=== PATIENT | male | born 1955 | race Caucasian/White ===

== ENCOUNTER 2023-07-08 09:03 | Emergency (ER) | payer OTHER, SELFPAY ==
--- NOTE | ~2023-07-08 | XR_ITS ---
EXAMINATION: XR knee RT 3V DATE: 07/08/2023 09:32 INDICATION: Right knee pain TECHNIQUE: Three views of the right knee were obtained. COMPARISON: None. FINDINGS: Alignment is normal. No fracture or osteochondral lesion. There is mild tricompartmental os teoarthritis characterized by tiny marginal osteophytes. There is a moderate size knee joint effusion . Soft tissues are unremarkable. IMPRESSION: 1. Moderate size joint effusion without acute osseous abnormality. Reviewed, dictated and finalized at location [facility]
[2023-07-08 09:15] VITALS: BP 144/79; PULSE 90; RESP 16; TEMP 36.3; O2SAT 100
--- NOTE | 2023-07-08 09:15 | ED.EXTPRO ---
HPI - Extremity Problem General Chief complaint: Extremity Problem,Nontraumatic Stated complaint: Right Knee Pain Source: patient Mode of arrival: ambulatory Limitations: no limitations History of Present Illness HPI Narrative: 68-year-old male presented for complaint of right knee pain and swelling over the past weeks. Pain is worse with bending or walking, no pain at rest. He denies known injury. States yesterday after sitting, the knee was stiff and hard to straighten. States he has some days with the knee hurts worse than others. Denies redness or warmth to the site. Denies numbness, tingling, weakness. Took Aleve for pain. Does not have PCP. Related Data Home Medications Medication Instructions Recorded Confirmed No Home Medications 07/08/23 07/08/23 Allergies Allergy/AdvReac Type Severity Reaction Status Date / Time No Known Allergies Allergy Verified 07/08/23 09:17 Review of Systems Review of Systems: CONSTITUTIONAL: Denies body aches, fever, chills EYES: Denies visual changes ENT: Denies rhinorrhea, congestion CARDIOVASCULAR: Denies chest pain, palpitations, or edema. RESPIRATORY: Denies cough or dyspnea. GASTROINTESTINAL: Denies abdominal pain, nausea, vomiting, or diarrhea. SKIN: Denies rash, itching, or wounds. MUSCULOSKELETAL: Reports right knee denies back pain, or myalgia. NEUROLOGIC: Denies headache, numbness, tingling, or weakness. All systems reviewed & are unremarkable except as noted in HPI and below PMFSH Past Medical History Medical History (Updated 07/08/23 @ 10:01 by Katlyn Benito APRN) No pertinent past medical history Comments At time of signature, I have reviewed and agree with nursing past medical, surgical, social and family history unless otherwise noted. Please see nursing chart for further information. There is no relevant family history pertinent to the presenting complaint Exam Narrative: GENERAL: Well-appearing, well-nourished, and in no acute distress. CHEST: Speaks in full sentences. No respiratory distress. HEART: Regular rate and rhythm. Normal and equal peripheral pulses. EXTREMITIES: Right knee normal range of motion, Moderate swelling. No ecchymosis warmth or erythema, No point tenderness. RLE has normal strength and sensation, No open wounds, alignment normal, pulse palpable and equal bilaterally, skin warm, dry, pink. Capillary refill less than 3 seconds. Steady gait. SKIN: Warm, dry, no rash. NEURO: Alert and oriented x3. PSYCH: Normal mood and affect Course Course Emergency Course: Patient is aware of diagnosis, understands and agrees to treatment plan. Anticipatory guidance given. Patient agrees to follow-up as directed and is aware of reasons to seek care at the emergency department. Portions of this record may have been created with voice recognition software Level of Care: Express Care Visit Vital Signs Vital signs: Vital Signs Temperature 97.3 F L 07/08/23 09:15 Pulse Rate 90 07/08/23 09:15 Respiratory Rate 16 07/08/23 09:15 Blood Pressure 144/79 H 07/08/23 09:15 Pulse Oximetry 100 07/08/23 09:15 Temperature 97.3 F L 07/08/23 09:15 Pulse Rate 90 07/08/23 09:15 Respiratory Rate 16 07/08/23 09:15 Blood Pressure 144/79 H 07/08/23 09:15 Pulse Oximetry 100 07/08/23 09:15 Reviewed MDM - Extremity (Nontraumatic) MDM Narrative Medical decision making narrative: Results of x-ray reviewed with patient. Discussed physical exam findings. Declined Danish wrap, states he has Danish wrap and a knee sleeve at home. Advised supportive measures and signs/symptoms to go to the ER. Pt is appropriate for outpt treatment and f/u. Differential Diagnosis Differential diagnosis: Likely other (osteoarthritis, patella dislocation, patellar tendonitis, tendon rupture, gout, bakers cyst, septic bursitis, dvt) Imaging Data Radiologist's impression: Patient: Jasson Thakur : 1955 MR#: [id number] Age: 68 A
== END 2023-07-08 10:02 | disposition home or self-care (01) ==
PROVIDERS: Emergency Provider Nurse Practitioner Family
DX: M25.561 Pain in right knee (principal)
CPT/HCPCS: 73562; 99213; G0463

== ENCOUNTER → 2023-08-02 07:37 | Outpatient (CLI) | payer OTHER, SELFPAY ==
--- NOTE | ~2023-08-02 | MR_ITS ---
MRI of the right knee Clinical history: Injury Technique: Coronal proton density and proton density-weighted images, sagittal proton-density and T2 fat-sat images, and axial proton-density fat-saturated images were acquired. Findings: Exam degraded by motion artifact. Anterior and posterior cruciate ligaments appear intact. Medial collateral ligament and the lateral collateral ligament complex appear intact. Popliteus tendo n is intact. There is complex, predominantly horizontal tear involving the posterior horn and body of the medial m eniscus. There is horizontal tear involving the body segment of the lateral meniscus, possibly extend ing to the posterior horn. There is a large subchondral geode of the posterior tibial spine at the PCL insertion region. There i s probable high-grade chondromalacia of the medial tibial plateau with subchondral cystic change at t he medial joint line at the medial tibial plateau. There is mild to moderate chondromalacia of the la teral compartment. There is patchy moderate to high-grade chondromalacia extensively involving the pa tellofemoral compartment. Extensor mechanism is intact. Moderate joint effusion present. There is small Aquino's cyst. There is extensive subcutaneous soft tissue edema. Impression: Complex, predominantly horizontal tear involving the posterior horn and body of the medial meniscus. Horizontal tear body segment of the lateral meniscus, possibly extending to the posterior horn. Tricompartmental degenerative change, as detailed above. There is a large subchondral geode at the po sterior tibial spine at the PCL insertion region. Moderate joint effusion with small Aquino's cyst. Extensive subcutaneous soft tissue edema, nonspecific. Reviewed, dictated and finalized at [facility]. DYER Impression: Complex, predominantly horizontal tear involving the posterior horn and body of the medial meniscus. Horizontal tear body segment of the lateral meniscus, possibly extending to the posterior horn. Tricompartmental degenerative change, as detailed above. There is a large subch ondral geode at the posterior tibial spine at the PCL insertion region. Moderate joint effusion with small Aquino's cyst. Extensive subcutaneous soft tissue edema, nonspecific.
== END ==
PROVIDERS: PCP Orthopaedic Surgery; Visit Provider Orthopaedic Surgery
DX: S83.231A Complex tear of medial meniscus, current injury, right knee, initial encounter (principal); M17.11 Unilateral primary osteoarthritis, right knee; M25.461 Effusion, right knee; M71.21 Synovial cyst of popliteal space [Baker], right knee
CPT/HCPCS: 73721

== ENCOUNTER 2023-09-14 11:33 | Outpatient (CLI) | payer OTHER, SELFPAY ==
--- NOTE | 2023-09-14 12:04 | ECG_ITS ---
Measurements Intervals [place] Rate: 86 P: 238 OK: 104 QRS: -3 QRSD: 82 T: 58 QT: 368 QTc: 442 Interpretive Statements SINUS RHYTHM RHYTHM BASELINE ARTIFACT LIMITS INTERPRETATION NO PREVIOUS ECG AVAILABLE FOR COMPARISON Electronically Signed On 09-14-2023 16:43:22 [employer]AST[employer] MANAGEMENT SPECIALIST by Omar Harmon M.D.
== END 2023-09-14 11:34 | disposition home or self-care (01) ==
PROVIDERS: Visit Provider Orthopaedic Surgery
DX: Z01.818 Encounter for other preprocedural examination (principal); R93.1 Abnormal findings on diagnostic imaging of heart and coronary circulation; F17.200 Nicotine dependence, unspecified, uncomplicated
CPT/HCPCS: 93005

== ENCOUNTER 2023-09-16 01:17 | Day surgery (SDC) | payer OTHER, SELFPAY ==
[2023-09-06 08:05] VITALS: BMI 26.2
--- NOTE | 2023-09-06 08:18 | PC.NURSE ---
Report to the Outpatient Waiting Room, entrance under the green pavilion located off [facility], at time __7:00AM on date __09/16/23 . Planned Procedure Time: ___9:00AM . Time changes happen often and if your time is changed the preop area will call you the afternoon before. - You and your visitor will be asked to self-screen and do not enter if you have any COVID symptoms. - A mask is optional within the hospital at this time. Patients may have clear liquids (water, carbonated beverages, clear teas, apple juice) until 3 hours prior to surgery with a maximum of 20 ounces. - No food from midnight until time of surgery. Take the following medications with a SIP of water the morning of surgery: NONE DO NOT STOP ANY OF YOUR OTHER PRESCRIPTION MEDICATIONS PRIOR TO SURGERY ?EXCEPT THE FOLLOWING Medications to discontinue per physician NONE Date to take last dose Please no make-up, nail syriac, hairspray, perfume, deodorant, or body powder the day of surgery. No jewelry (including any body piercings) or valuables the day of surgery, leave them at home. Please take a shower or bath the night before, or the morning of, surgery with an antibacterial soap. Wear comfortable, loose fitting clothing. - Jewelry must be removed prior to entering the operating room. Rings and piercings that are not removed may be cut off. - The hospital will not accept responsibility for valuables. - Please leave all valuables, including medications, at home the day of surgery. If you are going home after surgery, a licensed pick up driver must drive you home. - NO public transportation without another adult if you receive anesthesia. - We recommend that an adult stay with you for 24 hours following discharge. - We also recommend that you do not drive, make important decision, drink alcoholic beverages, or take any drugs that were not prescribed by your health care provider for at least 24 hours after your discharge time. Follow any additional instructions given to you from your surgeon. HIBICLENS SHOWERS PER DR STOREY. DO NOT SHAVE HAIR FROM KNEE. If you or anyone in your household have experienced Covid symptoms in the past week, please notify your surgeon or the nurse liaison at the phone number below for possible testing. Telephone instructions given to ____PATIENT and asked if any additional questions and then verbalized understanding. Patient advised to call surgeon office or pre surgery nurse liaison [phone] if any additional questions.
[2023-09-16] VITALS (8 sets, daily range): BP systolic 135–166; BP diastolic 84–95; PULSE 77–88; RESP 12–18; TEMP 36.1–36.2; O2SAT 100
--- NOTE | 2023-09-16 07:15 | WPDHPUPDATE1 ---
History and Physical Update Update Date/Time: 09/16/23 07:15 History and Physical has been reviewed, including an updated exam of the patient. There are NO changes in the patient's condition. Risks, benefits, and alternatives have been discussed and questions answered. Patient agrees to proceed with procedure.
[2023-09-16] MEDS: LACTATED RINGERS 1,000 ML 30 ML IV CONT (10:30)
[2023-09-16] MEDS: ACETAMINOPHEN 500 MG TABLET 1000 MG PO (10:43)
[2023-09-16] MEDS: CELECOXIB 200 MG CAPSULE PO (10:43)
--- NOTE | 2023-09-16 10:59 | P.PNAN_ITS ---
Anes - Initial Pre Proc Eval Procedure: Operation Date: 09/16/23 12:00 Proposed Procedures p Right Knee Arthroscopy, Proceed As Indicated - Jose Jacobs MD Date/Time: 09/16/23 10:59 Surgeon: Jose Jacobs MD Pre Op Diagnosis: right knee medial and lateral meniscus tears Patient Data Age: 68 Gender: M Height: 1.91 m Weight: 95 kg Allergies Allergy/AdvReac Type Severity Reaction Status Date / Time No Known Allergies Allergy Verified 09/16/23 10:18 Home Medications Medication Instructions Recorded Confirmed Type hydrocodone 5 mg-acetaminophen 325 1 tablet PO BID PRN pain #20 tabs 09/16/23 Rx mg tablet Patient hx anesthesia problems: none Family hx anesthesia problems: none Results Review: All pre-operative results and documents have been reviewed as part of the pre- operative evaluation. [facility] Past Medical History Medical History Smoking Surgical History Surgical History History of appendectomy Family History Family History Unknown Hypertension Diabetes mellitus Arthritis Social History Social History Social History: caffeine use Smoking packs per day: 2 Smoking cigarettes per day: 40.0 Years smoked: 20 Smoking pack-years: 40.00 Smoking status: Current every day smoker Tobacco type: cigarettes Additional smoking assessment comments: 5 CIG/DAY Alcohol intake: current Drinks per week: 1 Substance use type: does not use Living arrangements: with family Additional living arrangements comments: Occupation/Education: occupation 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 Informed Consent: The patient's anesthetic plan and its attendant risks and benefits were discussed with the patient/family/POA. Questions were solicited and answers provided to the satisfaction of the patient/family/POA.
[2023-09-16] MEDS: ceFAZolin 2 GM/D5W 50 ML 2 GM/50 ML BAG IVPB (11:37)
[2023-09-16] MEDS: BUPivacaine HCL 0.5% 10 ML AMP 30 ML INFILTRATE (11:55)
[2023-09-16] MEDS: methylPREDNISolone ACETATE 80 MG/ML VIAL IM (11:56)
--- NOTE | 2023-09-16 12:50 | P.OP_ITS ---
Procedure Note - Detailed Date of Procedure 09/16/23 Pre-op Diagnosis right knee medial and lateral meniscus tears Post-op Diagnosis Same Procedure Performed RIGHT KNEE SCOPE Surgeon Jose Jacobs MD Anesthesia General Description of Procedure PATIENT WAS TAKEN TO THE OR. RIGHT LEG WAS PREPPED AND DRAPED STERILE. TROCARS WERE PLACED IN THE USUAL FASHION. CAMERA WAS INTRODUCED. THERE WAS SEVERE CHONDROMALACIA TO THE PATELLA FEMORAL JOINT. THERE WAS A LOT OF SYNOVITIS IN ALL COMPARTMENTS. THE MEDIAL COMPARTMENT SHOWED CHONDROMALACIA TO THE MEDIAL FEMORAL CONDYLE. A SHAVER WAS USED TO PREFORM A CHONDROPLASTY. THERE WAS A COMPLEX MEDIAL MENISCUS TEAR. THE TEAR WAS RESECTED WITH A BITER AND A SHAVER DO WN TO A SMOOTH BASE. ABOUT 30% OF THE MENISCUS WAS REMOVED. THE ACL WAS INTACT. THE LATERAL MENISCUS WAS TORN AT THE ANTERIOR HORN AND POSTERIOR HORN. THE TEAR WAS RESECTED. THE LAT COMPARTMENT HAD GRADE 2 CHONDROMALACIA AT THE LATERAL FEMORAL CONDYLE. CHONDROPLASTY WAS PREFORMED. A SYNOVECTOMY WAS PREFORMED WELL. THE PATELLO FEMORAL JOINT UNDERWENT CHONDROPLASTY. THERE WAS GRADE 3 CHONDROMALACIA IN MOST OF THE TROCHLEA AND PART OF THE PATELLA. SYNOVECTOMY WAS PREFORMED IN THE SUPERIOR MEDIAL COMPARTMENT. THE WOUNDS WERE APPROXIMATED WITH 4.0 NYLON. STERILE DRESSING WAS APPLIED. PATIENT WAS EXTUBATED. Estimated Blood Loss 5 Complications No immediate complications Condition Stable Disposition PACU
== END 2023-09-16 14:30 | disposition home or self-care (01) ==
PROVIDERS: Visit Provider Orthopaedic Surgery
PROC: (CPT 29870; principal; 2023-09-16 12:00)
DX: S83.231A Complex tear of medial meniscus, current injury, right knee, initial encounter (principal); S83.281A Other tear of lateral meniscus, current injury, right knee, initial encounter; M94.261 Chondromalacia, right knee; M65.861 Other synovitis and tenosynovitis, right lower leg; F17.210 Nicotine dependence, cigarettes, uncomplicated; Z98.890 Other specified postprocedural states; Z79.891 Long term (current) use of opiate analgesic; X58.XXXA Exposure to other specified factors, initial encounter
CPT/HCPCS: 29880; 93005; A9270; J0690; J1040; J1100; J2250; J2405; J2704; J3010; J7120

== ENCOUNTER 2025-04-05 10:32 | Outpatient (CLI) | payer OTHER, SELFPAY ==
--- OUTSIDE RECORDS SUMMARY | 2025-04-05 10:34 | XMS_ITS | Clinical Summary ---
Author Organization [facility] A Address [address] [place] [address] Care Team Providers Care Cable Weaver Name Role Phone Miley Snyder MD Primary Care Provide r Allergies No known active allergies Medications No known medications Active Problems Problem Noted Date Diagnosed Date Tobacco use 03/27/2025 Assessment & Plan (03/27/2025 1:14 PM CDT): Chronic problem, not at goal of cessation. Smoking cessation encouraged and risk of tobacco use discussed Information/education and counseling provided re: nicotine patches, madisyn, 4-847-CBJN-NOW. Encounter for wellness examination 08/25/2023 Assessment & Plan (03/27/2025 1:14 PM CDT): Discussed lifestyle modifications, diet and exercise. Routine blood work recommended today, pt declines Recommend continued yearly vision and dental examinations. Up-to-date on other screenings: Colon cancer screening UTD. Cologuard in 2023 returned negative with recommendation to repeat in 3 years. PSA in 2023. Assessment & Plan (08/25/2023 2:22 PM PARLIAMENTARY COUNSEL): Ordered CBC, cmp, lipid, hgb a1c,hep c, TSH w/ reflex to t4 psa Flu declines Cologuard ordered Pcv20 declines Zoster vaccine declines F/u in 1 year for annual Elevated blood pressure read ing without diagnosis of hypertension 08/25/2023 Assessment & Plan (10/12/2023 11:25 AM CDT): Bp in the office today BP Readings from Last 1 Encounters: 10/12/23 130/74 resolved Recommend DASH diet, heart-healthy lifestyle, exercise. Discussed the risks of hypertension. If no improvement with lifestyle modifications will consider bp medication F/u at annual Assessment & Plan (08/25/2023 2:34 PM PARLIAMENTARY COUNSEL): Bp in the office today BP Readings from Last 1 Encounters: 08/25/23 140/78 New concern Not at goal Recommend DASH diet, heart-healthy lifestyle, exercise. Discussed the risks of hypertension. If no improvement with lifestyle modifications will consider bp medication F/u in 1 month Encounters Date Type Department Care Team Description 03/27/2025 1:00 PM CDT Office Visit [facility] Primary Care at [address] [phone] Corie Rod NP Encounter for wellness examination (Primary Dx); Tobacco use; Decreased hearing, bilateral 03/27/2025 Orders Only [facility] Primary Care at [address] [phone] Corie Rod NP Decreased hearing, bilateral (Primary Dx) 03/27/2025 Orders Only [facility] Primary Care at [address] [phone] Miley Snyder MD Decreased hearing, bilateral (Primary Dx) from Last 3 Months Immunizations Immunization Administration Dates Next Due Influenza, Unspecified 03/27/2025(Deferr ed: Patient Refused),10/12/2023(Deferred: Patient Refused) Surgical History Surgery Date Site/Laterality Comments APPENDECTOMY Family History Medical History Relation Name Comments Diabetes Brother 1 Hypertension Brother 2 Dementia Father Arthritis Mother Dementia Mother Hypertension Mother Relation Name Status Comments Brother 1 Brother 2 Alive Father Mother Social History Tobacco Use Types Packs/Day Years Used Date Smoking Tobacco: Every Day Cigarettes 0.3 50 Smokeless Tobacco: Never Tobacco Cessation:Ready to Q uit: Not Asked; Counseling Given: Not Answered Alcohol Use Standard Drinks/Week Comments Never 0 (1 standard drink = 0.6 oz pur e alcohol) PHQ-2 Answer Date Recorded PHQ-2 Total Score (If total score is 3 or more points, staff should administer the PHQ-9) 0 03/27/2025 AUDIT-C Answer Date Recorded Q1: How often do you have a drink containing alcohol? Never 03/27/2025 Q2: How many drinks containi ng alcohol do you have on a typical day when you are drinking? Patient does not drink Q3: How often do you have si x or more drinks on one occasion? Never 03/27/2025 Sex and Gender Information Value Date Recorded Sex Assigned at Not on file Legal Sex Male 12:01 PM PARLIAMENTARY COUNSEL Gender Identity Not on file Sexual Orientation Not on file Obstetrics History Last Filed Vital Signs Vital Sign Reading Time Taken Comments Blood Pressure 122/76 03/27/2025 12:55 PM CDT Pulse 76 03/27/2025 12:55 PM CDT Temperature 37 C (98.6 F) 03/27/2025 12:55 PM CDT Respiratory Rate - - Oxygen Saturation 97% 03/27/2025 12:55 PM CDT Inhaled Oxygen Concentration - - Weight 92.5 kg (204 lb) 03/27/2025 12:55 PM CDT Height 190.5 cm (6' 3) 03/27/2025 12:55 PM CDT Body Mass Index 25.5 03/27/2025 12:55 PM CDT Plan of Treatment Health Maintenance Due Date Last Done Comments DTaP/Tdap/Td Vaccine (1 - Tdap) 1968 Hepatitis B Screening 1975 Pneumococcal vaccine 65+ (1 of 2 - PCV) 1976 Zoster Vaccine (1 of 2) 2007 Abdominal Aortic Aneurysm (A AA) Screen 2022 Influenza Vaccine (#1) 2025 Prostate Cancer Screening-PSA 09/01/2025 09/01/2023 Depression Screening 03/27/2026 03/27/2025, 10/12/2023, 08/25/2023 Fall Risk Assessment 03/27/2026 03/27/2025, 10/12/2023, 08/25/2023 Well Visit 65+ 03/27/2026 03/27/2025, 08/25/2023 Colon Cancer Screening-Colonoscopy 09/15/2026 Hepatitis C Screening Completed 09/01/2023 Procedures Procedure Name Priority Date/Time Associated Diagnosis Comments HEPATITIS C ANTIBODY Routine 09/01/2023 7:26 AM PARLIAMENTARY COUNSEL Elevated blood pressure reading without diagnosis of hypertension Need for hepatitis C screening test IGT (impaired glucose tolerance) PSA SCREEN Routine 09/01/2023 7:26 AM PARLIAMENTARY COUNSEL Elevated blood pressure reading without diagnosis of hypertension Screening PSA (prostate specific antigen) IGT (impaired glucose tolerance) from Last 3 Months or Most Recently Relevant to Health Maintenance Results * PSA screen (09/01/2023 7:26 AM PARLIAMENTARY COUNSEL) PSA-Total 4.14 <=5.40 ng/mL DARLENE MARIANO ([place]) Comment: Interpretive Data AGE SEX REFERENCE INTERVAL 0 minutes-150 years Female None 0 minutes-49 years Male None 50-59 years Male 0-3.90 60-69 years Male 0-5.40 70-79 years Male 0-6.20 80-150 years Male 0-6.20 The Guerline PSA Total assay procedure was used. Results from different manufacturers or methods may not be comparable. Serial testing should be performed using the same method. Current interpretive data last revised 21. Blood 09/01/2023 7:26 AM PARLIAMENTARY COUNSEL 09/01/2023 10:26 AM PARLIAMENTARY COUNSEL Narrative DARLENE MARIANO ([place]) - 09/01/2023 10:55 AM PARLIAMENTARY COUNSEL fasting Miley Snyder MD LAB BLOOD ORDERABLES Final Result DARLENE SARABIA) [address] [facility] [place] [address] * Hepatitis C antibody Blood (09/01/2023 7:26 AM PARLIAMENTARY COUNSEL) Hep C Ab Nonreactive Nonreactive DARLENE MARIANO ([place]) Comment: Interpretive Data Nonreactive: Antibodies to HCV not detected. Does NOT exclude the possibility of recent exposure to HCV. Equivocal: Equivocal for HCV antibodies. Supplemental molecular testing will be automatically performed to determine infection status in accordance with current CDC screening recommendations. Reactive: Positive for HCV antibodies. This may represent current or past HCV infection. Supplemental molecular testing will be automatically performed to determine current infection status in accordance with current CDC screening recommendations. Interpretive data was last revised on 2019. Testing performed by: [facility], [address] [place] [address], [place]., [address] Blood 09/01/2023 7:26 AM PARLIAMENTARY COUNSEL 09/01/2023 2:21 PM PARLIAMENTARY COUNSEL Narrative DARLENE MARIANO ([place]) - 09/01/2023 4:07 PM PARLIAMENTARY COUNSEL fasting Miley Snyder MD LAB MICROBIOLOGY - NERCO ORDERABLES Final Result DARLENE MARIANO ([place]) [address] [facility] [place] [address] from Last 3 Months or Most Recently Relevant to Health Maintenance [place] [address] [facility] H[facility] Care Teams Cable Weaver Relationship Specialty Start Date End Date Miley Snyder MD [address] [place] [facility] [place] [address] PCP - General Family Medicine 08/25/23
== END 2025-04-05 10:33 | disposition home or self-care (01) ==
LOC: ANHAUDIO 10:32
DX: H90.3 Sensorineural hearing loss, bilateral (principal)
CPT/HCPCS: 92557; 92567

== ENCOUNTER 2025-05-08 13:30 | Outpatient (RCR) | payer OTHER, SELFPAY | END 2025-05-08 23:59 | disposition home or self-care (01) | LOC: ANHAUDIO 13:30 | DX: Z46.1 Encounter for fitting and adjustment of hearing aid (principal) | CPT/HCPCS: 99199; V5261 ==